=== PATIENT | male | born 1975 | race Caucasian/White ===

== ENCOUNTER 2017-01-30 08:54 | Emergency (ER) | payer OTHER ==
[2017-01-30] MEDS ORDERED: FAMOTIDINE 20 MG TABLET PO ONE (09:10)
[2017-01-30] MEDS ORDERED: METHYLPREDNISOLONE SOD SUCC/PF 40 MG/ML VIAL IM ONE (09:10)
[2017-01-30] MEDS ORDERED: METHYLPREDNISOLONE SOD SUCC/PF 40 MG/ML VIAL ONE ×2 (09:12→09:22)
[2017-01-30] MEDS ORDERED: FAMOTIDINE 20 MG TABLET ONE (09:12)
[2017-01-30 09:17] VITALS: BP 156/104
--- NOTE | 2017-01-30 09:19 | ERNOTE ---
Integumentary HPI - Narrative Date of Service: 01/30/17 - General Presenting Symptoms: insect bite Time Seen by Provider: 01/30/17 09:05 Source: patient Exam Limitations: no limitations - Immun/Allergies/Home Medications Immunizations: IMMUNIZATION HX Immunizations Up to Date Yes Allergies/Adverse Reactions: Allergies Allergy/AdvReac Type Severity Reaction Status Date / Time amoxicillin [Amoxicillin] Allergy Unknown Hives Verified 01/30/17 09:03 Home Medications: HOME MEDICATIONS NK [No Home Medication] 05/19/13 [Last Taken Unknown] - Pain Pain Score: 0 - History of Present Illness Narrative: Noted at about 08:00 AM an insect bite in the web of his left hand, lateral left chest, and left lumbar area. Did not see insect but felt a pinch/burning. Noted some redness but left hand/wrist started swelling with more intense redness. Denies any SOB, CP, chills. He took two benadryl (50 mg) but came to ED. Currently denies pain. Feels stinging, burning sensation in his left hand intermittently. Date (Duration): 01/30/17 Time (Timing): 08:00 Location: Reports: hands Quality: Reports: burning Severity: mild Exposure: Reports: insect bite/spider Review of Systems - Review of Systems Constitutional: Present: no symptoms reported EYE: Present: no symptoms reported ENT: Present: no symptoms reported Respiratory: Present: no symptoms reported Cardiology: Present: no symptoms reported Gastrointestinal/Abdominal: Present: no symptoms reported - Patient's Past Medical History Patient History - Medical: No pertinent hx Patient History - Cardiac/Respiratory: No pertinent hx Patient History - Cancer: No Hx of Cancer Patient History - Surgical Procedures: No surgical history Patient History - Other: None - Social History Living Situations: home Psych History: No pertinent hx Smoking Status: Current every day smoker Alcohol Use: none Drug Use: none - Immunizations Immunizations Up to Date: Yes Physical Exam - Physical Exam General Appearance: Present: wd/wn, alert, no apparent distress Head Exam: Present: normal inspection Ears, Nose, Throat: Present: normal ENT inspection Neck: Present: normal inspection Respiratory: Present: no respiratory distress, normal breath sounds Cardiovascular/Chest: Present: regular rate, rhythm, no murmur Gastrointestinal/Abdominal: Present: normal bowel sounds, nontender Extremity Exam: Present: other - left hand with non-pitting swelling and erythemia. Normal capillary refill. FROM. No apparent bite lesions ED Progress - Date and Time Seen: Date and Time: 01/30/17 09:32 No change - Vital Signs Vital Signs: Vital Signs 01/30/17 08:59 Temperature 37.0 C Pulse Rate 104 H Respiratory 12 Rate Blood Pressure 167/112 O2 Sat by Pulse 95 Oximetry - Progress/Reassessment Chief Complaint: Insect Bite Progress:: Unchanged Plan - Plan Plan: Will continue benadryl, pepcid at home on regular basis for 48 hours Discharge to home Departure Clinical Impression: Insect bite - Departure Disposition: Home self-care Condition: Good Instructions: Insect Bite Additional Instructions: Keep elevated for 24-48 hours Use tylenol alternating with ibuprofen every 3 hours Take pepcid 20 mg twice a day for 72 hours. Take benadryl 25 mg four time a day for 48 hours. Follow up with PCP or return to ED if condition worsens.
== END 2017-01-30 09:47 | disposition home or self-care (01) ==
LOC: ER 08:54
DX: S60.562A Insect bite (nonvenomous) of left hand, initial encounter (principal); F17.200 Nicotine dependence, unspecified, uncomplicated; W57.XXXA Bitten or stung by nonvenomous insect and other nonvenomous arthropods, initial encounter